=== PATIENT | male | born 1980 | race Caucasian/White ===

== ENCOUNTER 2024-01-05 09:36 | Day surgery (SDC) | payer BC, SELFPAY ==
[2024-01-05] VITALS (12 sets, daily range): BP systolic 92–137; BP diastolic 63–90; PULSE 52–69; RESP 11–16; TEMP 36.1–36.6; O2SAT 92–100; BMI 33.2
[2024-01-05] MEDS: SODIUM CHLORIDE 0.9 % (FLUSH) 10 ML SYRINGE IVF (10:02)
[2024-01-05] MEDS: CEFAZOLIN 2 GM INJ IVP (10:39)
[2024-01-05] MEDS: BUPIVACAINE 0.25% 30 ML INJECTION (11:30)
--- NOTE | 2024-01-05 11:31 | PM.ORPRC ---
Procedure Note Date of procedure: 01/05/24 Procedure: PREOPERATIVE DIAGNOSIS: Left knee medial and lateral meniscus tear POSTOPERATIVE DIAGNOSIS: Left knee medial and lateral meniscus tear NAME OF OPERATION: Left knee arthroscopic partial medial and lateral meniscectomy SURGEON: Quoc Mcmanus MD [employer]LLM[employer]ERING MACHINE OPERATOR: CELIO Horan ANESTHESIA: Spinal ESTIMATED BLOOD LOSS: 0 mL COMPLICATIONS: None SPECIMENS: None DRAINS: None PREOPERATIVE ANTIBIOTICS: Ancef 2 gram INDICATIONS: The patient is a 43-year-old with a history of left knee pain. MRI scan is consistent with a medial and lateral meniscus tear. Despite appropriate nonoperative management, including activity modification, antiinflammatories, [id number] pain medication, bracing, physical therapy, and injections they continue to have pain and disability. Operative intervention was offered. The risks, benefits and expected outcomes were discussed in detail. These included but were not limited to: Infection, bleeding, injury to blood vessel or nerve, venous thromboembolism. All questions were answered to their satisfaction. PROCEDURE: Spinal anesthesia was administered. The patient was placed supine on the operating room table. The left lower extremity was prepped and draped in the usual sterile fashion. The limb was exsanguinated with the David bandage. The pneumatic tourniquet was inflated to 300 mmHg. A standard anterolateral portal was established. The arthroscope was introduced. The working portal was established anteromedially. Diagnostic arthroscopy was performed with findings as follows: The suprapatellar pouch is normal. Articular surface on the patella is normal. Articular surface on the trochlea shows a focal area of grade 2/3 change proximally. The medial gutter is normal. The medial compartment shows diffuse grade 1 change on both sides of the joint. The medial meniscus has a complex degenerative tear of the posterior horn, into the midbody. There is a parrot-beak component with an anteriorly based unstable flap, flipped into the medial gutter. There is undersurface horizontal cleavage tearing of the posterior horn. The notch shows the ACL graft to be intact. The lateral compartment shows a focal, small patch of grade 3/4 change on the central, weight-bearing portion of the lateral femoral condyle, normal articular cartilage on the lateral tibial plateau. The lateral meniscus has a complex degenerative tear of the posterior horn, into the midbody and anterior horn. There is undersurface horizontal cleavage tearing of the posterior horn, into the midbody and anterior horn. The lateral gutter is normal. The posterior horn and midbody of the medial meniscus were debrided to a stable base using a combination of baskets and erendira through both portals. Likewise, the undersurface and leading edge of the anterior horn, midbody and posterior horn of the lateral meniscus was debrided with the shaver through both portals. Arthroscopic instruments were removed, the portal sites were Steri-Stripped closed, the knee was infiltrated with 30 mL of 0.25% Marcaine without epinephrine. A dry dressing was applied, the tourniquet was released. Sponge and needle counts were correct x 2. The patient tolerated the procedure well. There were no apparent complications. They were carefully transferred to the hospital bed and taken to the postanesthesia care unit in satisfactory condition. PLAN: The patient will be discharged to home. They may weightbear as tolerates. Range of motion will be unrestricted. They will follow up in the office next week for a wound check.
--- NOTE | 2024-01-05 11:41 | W.ANESCHARGE ---
Anesthesia Charges Start Date/Time Anesthesia Start Date: 01/05/24 Anesthesia Start Time: 10:32 Stop Date/Time Anesthesia Stop Date: 01/05/24 Anesthesia Stop Time: 11:42
--- NOTE | 2024-01-05 12:12 | SUR.PHASEI ---
patient met discharge criteria per anesthesia
== END 2024-01-05 13:08 | disposition home or self-care (01) ==
PROVIDERS: Visit Provider Orthopaedic Surgery
PROC: (CPT 29870; principal; 2024-01-05 11:00)
DX: M23.222 Derangement of posterior horn of medial meniscus due to old tear or injury, left knee (principal); M23.252 Derangement of posterior horn of lateral meniscus due to old tear or injury, left knee
CPT/HCPCS: 29880; 01400; J0665; J0690; J1100; J2250; J2405; J2704; J3010